=== PATIENT | male | born 1975 | race Caucasian/White ===

== ENCOUNTER 2024-09-30 14:42 | Outpatient (CLI) | payer MEDICARE, MEDICAID, SELFPAY ==
--- NOTE | 2024-09-30 14:52 | MRR_ITS ---
PROCEDURE INFORMATION: Exam: MR Lumbar Spine Without and With Contrast Exam date and time: 09/30/2024 4:45 PM Age: 49 years old Clinical indication: Condition or disease; Other: Osteomyelitis; Additional info: Osteomyelitis of vertebra, cspine/bacteremia TECHNIQUE: Imaging protocol: Magnetic resonance imaging of the lumbar spine without and with contrast. Contrast material: MULTIHANCE; Contrast volume: 16 ml; Contrast route: INTRAVENOUS (IV); COMPARISON: MR thoracic spine wo/w [id number] 09/30/2024 4:25 PM FINDINGS: Bones/joints: Abnormal signal and enhancement throughout the L3 vertebral body and extending into the right pedicle. Abnormal signal and enhancement in the superior L4 vertebral body and left pedicle. Disc space narrowing at L3-L4 with mildly increased T2 signal in the disc space. The vertebral body stature is maintained. Moderate chronic superior L5 Schmorl's node. Spinal epidural space: Mild thickening and enhancement of the ventral epidural space at the L3 and L4 levels. Spinal cord: Visualized cord, conus medullaris and cauda equina are unremarkable without compression. L1-L2: No significant disc bulge or herniation. No severe spinal canal stenosis. No significant neural foraminal narrowing. L2-L3: No significant disc bulge or herniation. No severe spinal canal stenosis. No significant neural foraminal narrowing. L3-L4: Circumferential disc bulge. Mild spinal canal stenosis. Moderate bilateral neural foraminal narrowing. L4-L5: No significant disc bulge or herniation. No severe spinal canal stenosis. No significant neural foraminal narrowing. L5-S1: No significant disc bulge or herniation. No severe spinal canal stenosis. No significant neural foraminal narrowing. Soft tissues: Paraspinous soft tissue edema and enhancement surrounding the L3 and L4 vertebral bodies. No organized fluid collection or abscess identified. MR/MR lumbar spine wo/w con [id number] IMPRESSION: 1. Osteomyelitis discitis at L3-L4. 2. Mild ventral epidural thickening and enhancement at L3-L4. No epidural abscess visualized. 3. L3-L4 paraspinous soft tissue infection. No organized abscess.
--- NOTE | 2024-09-30 14:52 | MRR_ITS ---
PROCEDURE INFORMATION: Exam: MR Thoracic Spine Without and With Contrast Exam date and time: 09/30/2024 4:25 PM Age: 49 years old Clinical indication: Condition or disease; Other: Osteomyelitis; Additional info: Osteomyelitis of vertebra, cervical region TECHNIQUE: Imaging protocol: Magnetic resonance imaging of the thoracic spine without and with contrast. Contrast material: MULTIHANCE; Contrast volume: 16 ml; Contrast route: INTRAVENOUS (IV); COMPARISON: No relevant prior studies available. FINDINGS: Bones/joints: Unremarkable. No fracture. Normal alignment. Normal marrow signal. Spinal cord: Normal signal. No cord compression. T1-T2: No significant disc bulge or herniation. No severe spinal canal stenosis. No significant neural foraminal narrowing. T2-T3: No significant disc bulge or herniation. No severe spinal canal stenosis. No significant neural foraminal narrowing. T3-T4: No significant disc bulge or herniation. No severe spinal canal stenosis. No significant neural foraminal narrowing. T4-T5: No significant disc bulge or herniation. No severe spinal canal stenosis. No significant neural foraminal narrowing. T5-T6: No significant disc bulge or herniation. No severe spinal canal stenosis. No significant neural foraminal narrowing. T6-T7: No significant disc bulge or herniation. No severe spinal canal stenosis. No significant neural foraminal narrowing. T7-T8: No significant disc bulge or herniation. No severe spinal canal stenosis. No significant neural foraminal narrowing. T8-T9: No significant disc bulge or herniation. No severe spinal canal stenosis. No significant neural foraminal narrowing. T9-T10: No significant disc bulge or herniation. No severe spinal canal stenosis. No significant neural foraminal narrowing. T10-T11: No significant disc bulge or herniation. No severe spinal canal stenosis. No significant neural foraminal narrowing. T11-T12: No significant disc bulge or herniation. No severe spinal canal stenosis. No significant neural foraminal narrowing. T12-L1: No significant disc bulge or herniation. No severe spinal canal stenosis. No significant neural foraminal narrowing. Soft tissues: Unremarkable. MR/MR thoracic spine wo/w [id number] IMPRESSION: Unremarkable MRI of the thoracic spine.
--- NOTE | 2024-09-30 14:52 | MRR_ITS ---
PROCEDURE INFORMATION: Exam: MR Cervical Spine Without and With Contrast Exam date and time: 09/30/2024 5:28 PM Age: 49 years old Clinical indication: Condition or disease; Other: Osteomyelitis; Additional info: Osteomyelitis of cspine/bacteremia TECHNIQUE: Imaging protocol: Magnetic resonance imaging of the cervical spine without and with contrast. Contrast material: MULTIHANCE; Contrast volume: 16 ml; Contrast route: INTRAVENOUS (IV); COMPARISON: MR thoracic spine wo/w [id number] 09/30/2024 4:25 PM FINDINGS: Bones/joints: There is extensive edema and contrast enhancement involving most of the C2 vertebral body as well as the entire odontoid process. There is bony erosion involving the odontoid. There is surrounding soft tissue edema and enhancement here. Abnormal edema and contrast enhancement involving the C5 and C6 vertebral bodies. There is surrounding soft tissue swelling but I see no fluid collection. No bony fracture noted. Overall bony alignment is normal. Spinal cord: Normal signal. No cord compression. C2-C3: No significant disc bulge or herniation. No severe spinal canal stenosis. No significant neural foraminal narrowing. C3-C4: No significant disc bulge or herniation. No severe spinal canal stenosis. No significant neural foraminal narrowing. C4-C5: No significant disc bulge or herniation. No severe spinal canal stenosis. No significant neural foraminal narrowing. C5-C6: No significant disc bulge or herniation. No severe spinal canal stenosis. No significant neural foraminal narrowing. C6-C7: No significant disc bulge or herniation. No severe spinal canal stenosis. No significant neural foraminal narrowing. C7-T1: No significant disc bulge or herniation. No severe spinal canal stenosis. No significant neural foraminal narrowing. Soft tissues: See Bones/joints finding. Vasculature: Expected flow voids in the vertebral arteries. MR/MR cervical spine wo/w [id number] IMPRESSION: Findings highly suspicious for osteomyelitis of C2, C5 and C6. No abscess noted. No cord compression noted.
[2024-09-30] MEDS: gadobenate dimeglumine 20 mL vial IV (17:10)
== END 2024-09-30 14:43 | disposition home or self-care (01) ==
PROVIDERS: Visit Provider Internal Medicine
DX: M46.22 Osteomyelitis of vertebra, cervical region (principal); R78.81 Bacteremia; M46.26 Osteomyelitis of vertebra, lumbar region; R93.7 Abnormal findings on diagnostic imaging of other parts of musculoskeletal system; M79.89 Other specified soft tissue disorders; M51.369 Other intervertebral disc degeneration, lumbar region without mention of lumbar back pain or lower extremity pain; M51.46 Schmorl's nodes, lumbar region; M48.061 Spinal stenosis, lumbar region without neurogenic claudication; R60.0 Localized edema
CPT/HCPCS: 72156; 72157; 72158